=== PATIENT | female | born 1970 | race Caucasian/White ===

== ENCOUNTER 2025-10-02 06:16 | Day surgery (SDC) | payer OTHER ==
[~2025-10-02] VITALS: Ht 168.9 cm; Wt 80.9 kg
[2025-10-02] MEDS ORDERED: SODIUM CHLORIDE 0.9% 1,000 ML ONE (06:33)
[2025-10-02] MEDS ORDERED: PREG100C56 PO (07:19)
[2025-10-02] MEDS ORDERED: ASPI-1497 PO (07:19)
[2025-10-02] MEDS ORDERED: SEMA1PEN3 PO (07:19)
[2025-10-02] MEDS ORDERED: IPRA3AMP24 (07:19)
[2025-10-02] MEDS ORDERED: LEVO50TA11 PO (07:19)
[2025-10-02] MEDS ORDERED: FLUT16H NASAL (07:19)
[2025-10-02] MEDS ORDERED: METF-445 PO (07:19)
[2025-10-02] MEDS: SODIUM CHLORIDE 0.9% 1,000 ML IV ONE (08:05)
[2025-10-02 13:40] LABS: GLUCOMETER DEV NAME(LOC) SDS.; GLUCOSE,POINT OF CARE 131 MG/DL (70-110)
== END 2025-10-02 11:50 | disposition home or self-care (01) ==
LOC: SURGERY 06:16
PROVIDERS: ATTEND Internal Medicine Critical Care Medicine
DX: R05.3 Chronic cough (principal); Z53.8 Procedure and treatment not carried out for other reasons; E11.9 Type 2 diabetes mellitus without complications; E03.9 Hypothyroidism, unspecified; I10 Essential (primary) hypertension; J81.1 Chronic pulmonary edema
CPT/HCPCS: 82962; J7030